=== PATIENT | male | born 1980 | race Two or more races ===

== ENCOUNTER 2017-01-27 03:12 | Emergency (ER) | payer MEDICAID ==
[~2017-01-27] VITALS: Ht 180.3 cm; Wt 63.5 kg
[2017-01-27] MEDS ORDERED: Morphine Sulfate 4mg/ml Inj IVP ONE ×2 (03:45→06:00)
[2017-01-27] MEDS ORDERED: Metoclopramide 10mg/2ml Inj IVP ONE (03:45)
[2017-01-27] MEDS ORDERED: DiphenhydrAMINE 50mg/ml Inj IVP ONE (03:45)
[2017-01-27 03:59] LABS: BASOPHILS % (AUTO) 0.5 % (0.0-2.0); EOSINOPHILS % (AUTO) 0.3 % (0.0-3.0); LYMPHOCYTES % (AUTO) 14.9 % (20.0-45.0); MEAN CORPUSCULAR HEMOGLOBIN 33.6 PG (27.0-31.0); MEAN CORPUSCULAR VOLUME 96 FL (80-99); MEAN PLATELET VOLUME 6.6 FL (6.5-10.1); MONOCYTES % (AUTO) 5.4 % (1.0-10.0); NEUTROPHILS % (AUTO) 78.9 % (45.0-75.0); PLATELET COUNT 268 K/UL (150-450); RED CELL DISTRIBUTION WIDTH 10.7 % (11.6-14.8)
--- NOTE | 2017-01-27 04:07 | Emergency Room Report ---
History of Present Illness General Chief Complaint: Headache Source: Patient Present Illness HPI 36-year-old male presents ED complaining of headache. States it started yesterday morning. Initially was mildly got progressively worse. Currently 9/ 10, sharp, behind both eyes. Nonradiating. Denies photophobia or blurry vision. Denies nausea or vomiting. Denies neck stiffness. Denies fevers or chills. Patient states he has history of brain aneurysm with surgery. Denies any recent trauma. Denies drug use. No other aggravating relieving factors. Denies any other associated symptoms Allergies: Coded Allergies: No Known Allergies (Unverified , 01/27/17) Patient History Past Medical History: none Past Surgical History: none Pertinent Family History: none Social History: Denies: smoking, alcohol use, drug use Immunizations: UTD Reviewed Nursing Documentation: PMH: Agreed, PSxH: Agreed Nursing Documentation-PMH Past Medical History: No Stated History Review of Systems All Other Systems: negative except mentioned in HPI Physical Exam Vital Signs Date Time Temp Pulse Resp B/P (MAP) Pulse Ox O2 Delivery O2 Flow Rate FiO2 01/27/17 03:25 98.1 75 16 121/84 99 Room Air Sp02 EP Interpretation: reviewed, normal General Appearance: no apparent distress, alert, GCS 15, non-toxic Head: normocephalic, atraumatic Eyes: bilateral eye normal inspection, bilateral eye PERRL, bilateral eye EOMI ENT: hearing grossly normal, normal pharynx, no angioedema, normal voice Neck: full range of motion, supple, no meningismus, supple/symm/no masses Respiratory: chest non-tender, lungs clear, normal breath sounds, speaking full sentences Cardiovascular #1: regular rate, rhythm, no edema Cardiovascular #2: 2+ carotid (R), 2+ carotid (L), 2+ radial (R), 2+ radial (L) , 2+ dorsalis pedis (R), 2+ dorsalis pedis (L) Gastrointestinal: normal bowel sounds, non tender, soft, non-distended, no guarding, no rebound Rectal: deferred Genitourinary: normal inspection, no CVA tenderness Musculoskeletal: back normal, gait/station normal, normal range of motion, non- tender Neurologic: alert, oriented x3, responsive, printed circuit boards pinner III-XII nml as tested, motor strength/tone normal, sensory intact, speech normal Psychiatric: judgement/insight normal, memory normal, mood/affect normal, no suicidal/homicidal ideation Reflexes: 3+ bicep (R), 3+ bicep (L), 3+ tricep (R), 3+ tricep (L), 3+ knee (R) , 3+ knee (L) Skin: normal color, no rash, warm/dry, well hydrated Lymphatic: no adenopathy Procedures Critical Care Time Critical Care Time i. I feel this is a highly complex case requiring extensive working including EKG/Rhythm strip, Xray/CT/US, Blood/urine lab work, repeat exams while in ED, and administration of strong opiates/narcotics for pain control, admission to hospital or close patient follow up. Total time: 30 min bedside evaluation and treatment excludes procedures (EKG). Reason for critical care: intracranial bleed Possible complications: hypotension, hypertension, NH, shock, arrhythmias, metabolic acidosis, end organ damage, respiratory failure. Interventions: Labs, IV fluids, pain medications, CT head, IV Keppra, consultation with neurosurgery, transferred to higher level of care Course: Patient presenting with headache since yesterday morning. History of brain aneurysm. CT shows intracranial bleed acute. No midline shift. No mass effect. BP within normal limits. No focal neurological deficits. No indication for mannitol or intubation at this time. IV Keppra given. Discussed with neurosurgery at [facility]. Patient will be transferred for higher-level care Consultations: nursing staff, EMS, family Performed by: Dr Whitmore Tolerated well condition = critical j. because of unstable vital signs this patient had a condition that could potentially threaten life or limb. I feel this is a critical patient who required my full attention while patient was considered critical. Total Critical Care Time excluding procedures was greater than 35 minutes Medical Decision Making Diagnostic Impression: Primary Impression: Intracranial bleed Additional Impression: H/O cerebral aneurysm repair ER Course Hospital Course 36-year-old male presents ED complaining of headache. History of brain aneurysm Differential diagnosis includes- breakthrough seizure, alcohol abuse, noncompliance with medication Clinical course Patient placed on stretcher. Initial history and physical I ordered labs, IV fluids, pain medications, CT brain Labs- leukocytosis noted, hb/hct stable, electrolytes ok CT Brain intraparenchymal bleed noted, no midline shift Given loading dose of Keppra. Patient is protecting airway and therefore should not be intubated. Patient will be transferred at [facility] for higher level of care. Case endorsed to neurosurgeon i. I feel this is a highly complex case requiring extensive working including EKG/Rhythm strip, Xray/CT/US, Blood/urine lab work, repeat exams while in ED, and administration of strong opiates/narcotics for pain control, admission to hospital or close patient follow up. Diagnosis - intraparenchymal bleed, h/o cerebral aneurysm repair transferred in critical condition Labs Test 01/27/17 03:45 White Blood Count 15.0 K/UL (4.8-10.8) Red Blood Count 5.00 M/UL (4.70-6.10) Hemoglobin 16.8 G/DL (14.2-18.0) Hematocrit 47.9 % (42.0-52.0) Mean Corpuscular Volume 96 FL (80-99) Mean Corpuscular Hemoglobin 33.6 PG (27.0-31.0) Mean Corpuscular Hemoglobin Concent 35.0 G/DL (32.0-36.0) Red Cell Distribution Width 10.7 % (11.6-14.8) Platelet Count 268 K/UL (150-450) Mean Platelet Volume 6.6 FL (6.5-10.1) Neutrophils (%) (Auto) 78.9 % (45.0-75.0) Lymphocytes (%) (Auto) 14.9 % (20.0-45.0) Monocytes (%) (Auto) 5.4 % (1.0-10.0) Eosinophils (%) (Auto) 0.3 % (0.0-3.0) Basophils (%) (Auto) 0.5 % (0.0-2.0) Sodium Level 138 MMOL/L (136-145) Potassium Level 3.7 MMOL/L (3.5-5.1) Chloride Level 103 MMOL/L (98-107) Carbon Dioxide Level 27 MMOL/L (21-32) Anion Gap 8 mmol/L (5-15) Blood Urea Nitrogen 11 mg/dL (7-18) Creatinine 1.0 MG/DL (0.55-1.30) Estimat Glomerular Filtration Rate > 60 mL/min (>60) Glucose Level 135 MG/DL (74-106) Calcium Level 9.4 MG/DL (8.5-10.1) Total Bilirubin 0.6 MG/DL (0.2-1.0) Aspartate Amino Transf (AST/SGOT) 14 U/L (15-37) Alanine Aminotransferase (ALT/SGPT) 25 U/L (12-78) Alkaline Phosphatase 81 U/L (46-116) Total Protein 7.6 G/DL (6.4-8.2) Albumin 4.3 G/DL (3.4-5.0) Globulin 3.3 g/dL Albumin/Globulin Ratio 1.3 (1.0-2.7) CT/MRI/US Diagnostic Results CT/MRI/US Diagnostic Results : Imaging Test Ordered: CT Brain Impression IMPRESSION: 1. Acute irregular hematoma centered in the left occipital/posterior temporal region, measuring up to approximately 6.3 x 4.2 x 4.2 cm (AP x SI x TX), at least partially within the poorly defined, probably dilated atrium, occipital and temporal horns of the left lateral ventricle; mild to moderate peripheral hypodense edema especially within the occipital lobe. 2. Small to moderate amount of blood within the body of the left lateral ventricle, without significant dilation. 3. Small acute left subdural hematoma, abutting the left tentorium and falx, and within the frontoparietal convexity, measuring up to 5 mm in thickness. 4. No subfalcine midline shift or uncal herniation. Last Vital Signs Date Time Temp Pulse Resp B/P (MAP) Pulse Ox O2 Delivery O2 Flow Rate FiO2 01/27/17 03:25 98.1 75 16 121/84 99 Room Air Status: improved Disposition: XFER SHT-TRM HOSP Condition: Critical Referrals: NOT CHOSEN COLT/,REFERRING (PCP) KERRY WHITMORE M.D. Jan 27, 2017 04:07
[2017-01-27 04:16] LABS: ANION GAP 8 mmol/L (5-15); CALCIUM 9.4 MG/DL (8.5-10.1); CARBON DIOXIDE 27 MMOL/L (21-32); CHLORIDE 103 MMOL/L (98-107); GLOMERULAR FILTRATION RATE > 60 mL/min (>60); POTASSIUM 3.7 MMOL/L (3.5-5.1); SODIUM 138 MMOL/L (136-145)
[2017-01-27 04:20] LABS: ALANINE AMINOTRANSFERASE 25 U/L (12-78); ALBUMIN/GLOBULIN RATIO 1.3 (1.0-2.7); ASPARTATE AMINO TRANSFERASE 14 U/L (15-37); TOTAL PROTEIN 7.6 G/DL (6.4-8.2)
[2017-01-27] MEDS ORDERED: levETIRAcetam 500mg vial IV ONE (05:12)
[2017-01-27] MEDS ORDERED: levETIRAcetam 500 MG in D5W 110 ML IV ONE (05:15)
[2017-01-27 05:22] VITALS: BP 120/76
[2017-01-27 06:00] LABS: INR 1.1 (0.9-1.1); PROTHROMBIN TIME 11.2 SEC (9.30-11.50)
[2017-01-27 06:22] VITALS: BP 124/70
[2017-01-27] MEDS ORDERED: BENADRYL25 MG ORAL (06:34)
[2017-01-27] MEDS ORDERED: DILANTIN100 MG ORAL (06:34)
[2017-01-27 06:57] VITALS: BP 124/70
== END 2017-01-27 06:57 | disposition short-term general hospital (02) ==
LOC: EMR 03:52
DX: I61.8 Other nontraumatic intracerebral hemorrhage (principal)
CPT/HCPCS: 36415; 70450; 80053; 85025; 85610; 85730; 96361; 96365; 96375; 96376; 99291; J1200; J1953; J2270; J2765